=== PATIENT | female | born 2000 | race Caucasian/White ===

== ENCOUNTER 2025-04-09 21:53 | Emergency (ER) | payer SELFPAY ==
[~2025-04-09] VITALS: Ht 160 cm; Wt 87.0 kg
[2025-04-09 22:02] VITALS: O2SAT 98
[2025-04-09 22:06] VITALS: O2SAT 99
[2025-04-09 23:09] LABS: BASOPHILS % 0.2 % (0.0-2.0); EOSINOPHILS % 1.0 % (0.0-5.0); HEMATOCRIT. 41.8 % (36.0-48.0); HEMOGLOBIN. 13.8 g/dL (12.0-16.0); LYMPHOCYTES % 9.2 % (20.0-50.0); MEAN PLATELET VOLUME 8.4 fl (7.4-10.4); MONOCYTES % 4.3 % (2.0-8.0); NEUTROPHILS % 85.3 % (40.0-76.0); PLATELET 230 x1000/uL (130-400); RED BLOOD CELL COUNT 4.70 mill/uL (4.2-5.4); RED CELL DISTRIBUTION WIDTH 14.6 % (11.6-14.6)
[2025-04-09 23:23] LABS: CREATININE 0.7 mg/dL (0.6-1.0)
[2025-04-09 23:24] LABS: HCG SCREEN NEGATIVE; UREA NITROGEN BLOOD 11 mg/dL (9-23)
[2025-04-09 23:25] LABS: ASPARTATE AMINOTRANSFERASE 14 IU/L (<34)
[2025-04-09 23:26] LABS: BILIRUBIN DIRECT 0.1 mg/dL (<=3.0); BILIRUBIN TOTAL 0.4 mg/dL (0.1-1.0); PROTEIN TOTAL 7.5 g/dL (6.0-8.3)
[2025-04-10] MEDS ORDERED: ONDA4TAB50 MT (00:48)
[2025-04-10] MEDS ORDERED: PROT20 MT (00:48)
[2025-04-10] MEDS ORDERED: MAGNESIUM HYDROXIDE 400MG/5ML 30ML UDC PO NR (02:00)
[2025-04-10] MEDS ORDERED: KETOROLAC 30MG/ML VIAL IM ONE (02:00)
[2025-04-10 02:04] VITALS: BP 120/77; PULSE 102; RESP 22; TEMP 37.3
== END 2025-04-10 02:09 | disposition home or self-care (01) ==
LOC: ER 21:53
DX: R10.9 Unspecified abdominal pain (principal); E11.9 Type 2 diabetes mellitus without complications
CPT/HCPCS: 36415; 76705; 80048; 80076; 82010; 84703; 85025; 99284